=== PATIENT | female | born 1970 | race Caucasian/White ===

== ENCOUNTER 2023-06-09 18:54 | Emergency (ER) | payer OTHER, SELFPAY ==
[2023-06-09 18:58] VITALS: BP 130/75; PULSE 91; RESP 20; TEMP 36.7; O2SAT 99
--- NOTE | 2023-06-09 19:18 | ED.URI ---
HPI - URI/Sore Throat General Chief Complaint: Upper Respiratory Infection Stated Complaint: congestion/fever Time Seen by Provider: 06/09/23 19:18 Source: patient, RN notes reviewed and old records reviewed Mode of arrival: ambulatory Limitations: no limitations History of Present Illness HPI Narrative: 53 year old female who presents to [facility] care with complaints of fevers low grade 100F, body aches, nausea, fatigue,head and sinus congestion with yellow discharge, cough, and congestion for 3 days. Patient reports that had been ill with similar symptoms previously. Patient reports that she has been taking Ibuprofen, DayQuil, NyQuil, Mucinex and also some Tylenol for her symptoms without resolution. MD elicited complaint: fever (low grade), cough, rhinorrhea, nasal congestion, sinus pain and other (body aches nausea and fatigue) Onset (ago): day(s) (3) Consistency: constant Pain scale (0-10): 7 Able to tolerate fluids by mouth: Yes Treatments prior to arrival: acetaminophen, ibuprofen and other (Mucinex, DayQuil,NyQuil) Related Data Home Medications Medication Instructions Recorded Confirmed carvedilol 6.25 mg tablet 6.25 mg PO BID 06/09/23 06/09/23 methylphenidate HCl 30 mg biphasic 30 mg PO DAILY 06/09/23 06/09/23 30-70 capsule,extended release norethindrone acetate 5 mg tablet 5 mg PO DAILY 06/09/23 06/09/23 trazodone 50 mg tablet See Rx Instructions .Route .COMPLEX 06/09/23 06/09/23 vilazodone 40 mg tablet 40 mg PO DAILY 06/09/23 06/09/23 Allergies Allergy/AdvReac Type Severity Reaction Status Date / Time No Known Allergies Allergy Unverified 08/03/13 16:01 Review of Systems Review of Systems: CONSTITUTIONAL: Reports malaise, chills, sweats, or fever. EYES: Denies visual changes, redness, or discharge. ENT: Reports rhinorrhea, congestion, sinus pain, no otalgia and no sore throat. CARDIOVASCULAR: Denies chest pain, palpitations, or edema. RESPIRATORY: Reports cough.? Denies dyspnea. GASTROINTESTINAL: Denies abdominal pain, stated nausea, no vomiting, no diarrhea SKIN: Denies rash or itching.reports MUSCULOSKELETAL:Reports myalgia NEUROLOGIC: Reports headache. All systems reviewed & are unremarkable except as noted in HPI and below PMFSH Past Medical History Medical History (Updated 06/10/23 @ 15:32 by Meg Soliz NP) ADD (attention deficit disorder) Anxiety and depression Hypertension Surgical History Surgical History (Updated 06/10/23 @ 15:25 by Meg Soliz NP) H/O cervical spine surgery H/O tubal ligation History of weight loss surgery Social History Social History (Updated 06/10/23 @ 15:26 by Meg Soliz NP) Smoking status: Never smoker Alcohol intake: current Alcohol use details: rare social Substance use type: does not use Living arrangements: with family Gender identity (if verbalized by the patient): Female Comments At time of signature, agree with nursing past medical, surgical, social and family history. There is no relevant family history pertinent to the presenting complaint Exam Narrative: GENERAL: Well-appearing, well-nourished, and in no acute distress. HEAD: Normocephalic EYES: PERRLA, conjunctivae clear ENT: Nares clear, turbinates edematous and erythematous, clear to yellow tinged discharge,sinus pressure. Mucous membranes moist. TM pearly kim with dull light reflex bilaterally; no tragal tenderness. Oropharynx erythematous without lesions. Tonsils not enlarged and without exudate, no drooling, no hoarseness, no trismus, uvula midline.post nasal drainage NECK: Supple. No lymphadenopathy CHEST: Clear to auscultation, breath sounds equal. No wheezing, rhonchi, rales, or stridor. No respiratory distress, speaks in full sentences.loose cough,SAO2 99% on room air HEART: Regular rate and rhythm. No murmur heard. SKIN: Warm, dry, no rash. NEURO: Alert and oriented x3. PSYCH: Normal mood and affect
== END 2023-06-09 19:50 | disposition home or self-care (01) ==
PROVIDERS: Emergency Provider Registered Nurse; PCP Internal Medicine Infectious Disease
DX: J06.9 Acute upper respiratory infection, unspecified (principal); R05.9 Cough, unspecified; I10 Essential (primary) hypertension; F41.9 Anxiety disorder, unspecified; F32.A Depression, unspecified; F90.9 Attention-deficit hyperactivity disorder, unspecified type
CPT/HCPCS: 87426; 87804; 99203; G0463